=== PATIENT | female | born 1985 | race Caucasian/White ===

== ENCOUNTER 2018-07-06 10:34 | Inpatient (IN) | payer OTHER ==
[2018-07-06] MEDS ORDERED: Ondansetron INJ* 2 MG/ML VIAL IV ONE ×2 (11:23→12:46)
[2018-07-06] MEDS ORDERED: Morphine INJ* 2 MG/ML 1 ML SYRINGE (TWO MG - NEW SYRINGE VERSION) IV ONE ×2 (11:23→12:46)
--- NOTE | 2018-07-06 11:28 | ED ---
Abdominal Pain/Female - HPI Summary HPI Summary: This patient is a 33 year old F presenting to [facility] with a chief complaint of since constant RUQ pain since 07/04/18. She endorses pain radiation through right flank and into lower back, N/V, diaphoresis, and fever that has resolved. Pt denies urinary sx. She notes that she has been experience similar sx intermittently since 10/17/17. PMHx hypernephrosis. - History of Current Complaint Chief Complaint: EDFlankPain Stated Complaint: RT FLANK PAIN Time Seen by Provider: 07/06/18 10:59 Hx Obtained From: Patient Hx Last Menstrual Period: IUD Onset/Duration: Sudden Onset, Lasting Weeks, Still Present, Worse Since - , started 10/17/17 intermittent sx. Timing: Days Severity Initially: Moderate Severity Currently: Moderate Pain Intensity: 6 Pain Scale Used: 0-10 Numeric Location: Discrete At: RUQ Radiates: Yes Radiates to: Back, Flank Character: Sharp Aggravating Factor(s): Nothing Alleviating Factor(s): Nothing Associated Signs and Symptoms: Positive: Diaphoresis, Fever - resolved, Nausea, Vomiting. Negative: Urinary Symptoms Allergies/Adverse Reactions: Allergies Allergy/AdvReac Type Severity Reaction Status Date / Time prochlorperazine Allergy Anxiety Verified 07/04/18 15:15 [From Compazine] sumatriptan [From Imitrex] Allergy Vomiting Verified 07/04/18 15:15 Green Peppers Allergy Headache Uncoded 07/04/18 15:15 Home Medications: Home Medications Multivitamins/Minerals TAB* [Theragran/minerals TAB*] 1 tab PO DAILY 07/06/18 [ History Confirmed 07/06/18] PMH/Surg Hx/FS Hx/Imm Hx Endocrine/Hematology History: Denies: Hx Anticoagulant Therapy, Hx Diabetes, Hx Thyroid Disease Cardiovascular History: Denies: Hx Hypertension, Hx Pacemaker/ICD Respiratory History: Denies: Hx Asthma, Hx Chronic Obstructive Pulmonary Disease (COPD) GI History: Reports: Other GI Disorders Denies: Hx Ulcer History: Reports: Hx Kidney Stones, Other Problems/Disorders - hypernephrosis Sensory History: Denies: Hx Legally Blind, Hx Deafness, Hx Hearing Aid Opthamlomology History: Denies: Hx Legally Blind EENT History: Denies: Hx Deafness Neurological History: Reports: Hx Migraine Psychiatric History: Reports: Hx Depression Denies: Hx Panic Disorder - Surgical History Surgery Procedure, Year, and Place: 2006; twisted bowel 2005 - lap/ appy Infectious Disease History: No Infectious Disease History: Denies: Hx Clostridium Difficile, Hx Hepatitis, Hx Human Immunodeficiency Virus (HIV), Hx Shingles, Hx Tuberculosis, Hx Known/Suspected VRE, Hx Known/ Suspected VRSA, History Other Infectious Disease, Traveled Outside the [place] in Last 30 Days - Family History Known Family History: Negative: Hypertension, Renal Disease, Respiratory Disease, Seizure Disorder - Social History Occupation: Employed Full-time Lives: With Family Alcohol Use: None Hx Substance Use: No Substance Use Type: Reports: None Hx Tobacco Use: Yes Smoking Status (MU): Light Every Day Tobacco Smoker Type: Cigarettes Amount Used/How Often: 1/2 ppd Have You Smoked in the Last Year: Yes Review of Systems Positive: Fever - resolved, Skin Diaphoresis Positive: Abdominal Pain, Vomiting, Nausea Positive: flank pain. Negative: dysuria, frequency, urgency Positive: Myalgia - lower back secondary to abd/flank pain All Other Systems Reviewed And Are Negative: Yes Physical Exam - Summary Physical Exam Summary: General: mildly ill-appearing, moderate to severe pain distress Skin: warm, color reflects adequate perfusion, dry Head: normal Eyes: EOMI, ANDRES ENT: normal Neck: supple, non-tender Respiratory: CTA, breath sounds present Cardiovascular: RRR Abdomen: soft, tender in RUQ, non-tender in rest of abd Bowel: present Musculoskeletal: normal, strength/ROM intact Neurological: sensory/motor intact, A&O x3 Psychological: affect/mood appropriate Triage Information Reviewed: Yes Vital Signs On Initial Exam: Initial Vitals Temp Pulse Resp BP Pulse Ox 97.4 F 101 16 121/79 99 07/06/18 10:39 07/06/18 10:39 07/06/18 10:39 07/06/18 10:39 07/06/18 10:39 Vital Signs Reviewed: Yes Diagnostics - Vital Signs Vital Signs Temp Pulse Resp BP Pulse Ox 07/06/18 10:39 97.4 F 101 16 121/79 99 - Laboratory Result Diagrams: 07/06/18 11:53 07/06/18 11:53 Lab Statement: Any lab studies that have been ordered have been reviewed, and results considered in the medical decision making process. - Radiology CXR Xray Interpretation: No Acute Changes Radiology Interpretation Completed By: Radiologist - No active cardiopulmonary disease. Dr. Luis has reviewed this report. - Ultrasound No standard instances Ultrasound Interpretation: No Acute Changes Ultrasound Interpretation Completed By: Radiologist - No evidence of cholelithiasis or biliary duct dilatation is noted. The right kidney measures 10.1 x 4.5 x 4.9 cm with fullness of the right renal collecting system. Dr. Luis has reviewed this report. Re-Evaluation - Re-Evaluation First Eval Re-Evaluation Time: 13:34 Change: Unchanged Comment: Pain hasn't really improved s/p pain medication. Second Eval Re-Evaluation Time: 15:17 Change: Unchanged Comment: Per BSN Yesenia, pt is still very nauseous, in pain. Abdominal Pain Fem Course/Dx - Course Course Of Treatment: DISCUSSED WITH UROLOGY, DR ROONEY. ADMIT HOSPITALIST. - Diagnoses Provider Diagnoses: RUQ abdominal pain, Right flank pain - Provider Notifications Discussed Care Of Patient With: Jany Dixon Time Discussed With Above Provider: 14:17 Instructed by Provider To: Other - discussed admission, recommended urology consult first. Discharge - Sign-Out/Discharge Documenting (check all that apply): Patient Departure - admit - Discharge Plan Condition: Stable Disposition: ADMITTED TO [facility] - Billing Disposition and Condition Condition: STABLE Disposition: Admitted to [facility] - Attestation Statements Document Initiated by Samarae: Yes Documenting Scribe: Bakari Bernabe Provider For Whom Scribe is Documenting (Include Credential): Dr. Duke Luis MD Scribe Attestation: Bakari Wright, scribed for Dr. Duke Luis MD on 07/06/18 at 1813. Scribe Documentation Reviewed: Yes Provider Attestation: The documentation as recorded by the Bakari wood accurately reflects the service I personally performed and the decisions made by me, Dr. Duke Luis MD Consult Consult: 1149, Dr. Rooney: Admit for pain if needed, order a diuretic nuclear renal scan. 1519, Dr. Dixon: accepts admission
[2018-07-06 12:03] LABS: ABS Basophils 0 10^3/ul (0-0.2); ABS Eosinophils 0.1 10^3/ul (0-0.6); ABS Lymphocytes 1.6 10^3/ul (1.0-4.8); ABS Monocytes 0.4 10^3/ul (0-0.8); ABS Neutrophils 6.5 10^3/ul (1.5-7.7); ABS Nucleated RBC 0 10^3/ul; Eosinophil % 1.1 % (0-6); Hematocrit 43 % (35-47); Lymphocyte % 18.1 % (25-47); Mean Corpuscular HGB Conc 35 g/dl (31-36); Mean Corpuscular Hemoglobin 32 pg (27-31); Mean Corpuscular Volume 92 fL (80-97); Mean Platelet Volume 7.6 um3 (7.4-10.4); Nucleated Red Blood Cells % 0.2; Platelet Count 184 10^3/ul (150-450); Red Blood Count 4.68 10^6/ul (4.00-5.40); Red Cell Distribution Width 13 % (10.5-15); White Blood Count 8.6 10^3/ul (3.5-10.8)
[2018-07-06] MEDS: NS 0.9% 1000 ML* 1,000 ML IV SCH ×3 (12:05→18:28)
[2018-07-06 12:17] LABS: INR 1.06 (0.77-1.02)
[2018-07-06 12:20] LABS: EGFR Non-African American 91.8 (>60)
--- NOTE | 2018-07-06 12:25 | RAD ---
Indication: Right upper quadrant pain. Real-time sonography of the right upper quadrant was performed. The liver is normal in size. No focal lesions or intrahepatic duct dilatation is noted. The gallbladder demonstrates no gallstones, pericholecystic fluid or wall thickening. The common duct measures 2 mm. The right kidney measures 10.1 x 4.5 x 4.9 cm with fullness of the right renal collecting system. The pancreatic head, neck and proximal body demonstrates no mass or pancreatic ductal dilatation. Aorta and inferior vena cava are unremarkable. IMPRESSION: No evidence of cholelithiasis or biliary duct dilatation is noted.
--- NOTE | 2018-07-06 12:33 | RAD ---
HISTORY: ruq pain COMPARISONS: August 27, 2017 VIEWS: 1: frontal portable view of the chest at 12:18 PM FINDINGS: LINES AND TUBES: None. CARDIOMEDIASTINAL SILHOUETTE: The cardiomediastinal silhouette is normal for portable technique. PLEURA: The costophrenic angles are sharp. No pleural abnormalities are noted. LUNG PARENCHYMA: The lungs are clear. ABDOMEN: The upper abdomen is clear. There is no subphrenic gas. BONES AND SOFT TISSUES: No bone or soft tissue abnormalities are noted., Metallic foreign bodies are noted of the chest. IMPRESSION: NO ACTIVE CARDIOPULMONARY DISEASE.
[2018-07-06] MEDS ORDERED: NS 0.9% 1000 ML* 1,000 ML IV ONE (13:02)
[2018-07-06 13:54] LABS: Urine Appearance Clear; Urine Blood Negative (Negative); Urine Color Straw; Urine Ketones 1+ (Negative); Urine Protein Negative (Negative); Urine Specific Gravity 1.005 (1.010-1.030); Urine Urobilinogen Negative (Negative)
[2018-07-06] MEDS ORDERED: HYDROmorphone INJ* 1 MG/ML CARPUJECT SYRINGE IV ONE (14:32)
[2018-07-06] MEDS ORDERED: diPHENhydraMINE IV* 50 MG/ML 1 ml VIAL (BENADRYL) IV ONE (15:17)
[2018-07-06] MEDS ORDERED: Metoclopramide IV* 5 MG/ML 2 ML VIAL IV SLOW PU ONE (15:17)
[2018-07-06] MEDS ORDERED: HYDROmorphone INJ1* 1 MG/ML SYRINGE IV ONE (16:00)
[2018-07-06] MEDS ORDERED: HYDROmorphone INJ1* 1 MG/ML SYRINGE IV SLOW PU PRN (16:16)
[2018-07-06] MEDS ORDERED: Ondansetron INJ* 2 MG/ML VIAL IV PRN (16:19)
[2018-07-06] MEDS ORDERED: HYDROmorphone INJ1* 1 MG/ML SYRINGE IV SLOW PU ONE (17:40)
[2018-07-06] MEDS: Ondansetron INJ* 2 MG/ML VIAL IV PRN (18:28)
[2018-07-06] MEDS ORDERED: Acetaminophen TAB* 325 MG PO PRN (19:08)
[2018-07-06] MEDS: Metoclopramide IV* 5 MG/ML 2 ML VIAL IV PRN (21:02)
[2018-07-06] MEDS: HYDROmorphone INJ1* 1 MG/ML SYRINGE IV SLOW PU PRN (21:06)
--- NOTE | 2018-07-06 21:13 | HP ---
HOSPITAL MEDICINE HISTORY AND PHYSICAL: DATE OF ADMISSION: 07/06/18 PRIMARY CARE PHYSICIAN: None. ATTENDING PHYSICIAN: Dr. Mikayla Bonds * (dictation provided by Sarahi Nichols NP ). CHIEF COMPLAINT: Right upper quadrant pain. HISTORY OF PRESENT ILLNESS: Ms. 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 In the setting of this, the patient developed right upper quadrant pain on of last year. She describes the sudden onset onset of severe right upper quadrant pain. The patient states that she was doubled over with severe 10/10 pain. She was evaluated at [facility] where she reports that they did imaging of her gallbladder and that it was normal. She had no findings there to explain her symptoms. They suspected, however, that it was the gallbladder and offered for her to be admitted to the hospital for HIDA scan. She was feeling better and was discharged at that point based on her preferences. The patient states that since , she has been having intermittent right upper quadrant pain. She describes having pain in much less intensity, but happening about every other day. She does feel that the foods that she eats does play into the pain, but she is not quite clear which foods cause it. She, on Wednesday, had new onset of the very severe 10/10 right upper quadrant pain consistent with what she had had around of last year. She was evaluated again at [facility]. The results from that emergency visit showed that a CT abdomen and pelvis showed no evidence of any kidney involvement and the normal gallbladder. She went for an ultrasound of the gallbladder, which was normal, but did show that the kidney was suspected to have a mild right hydronephrosis. She was discharged as there was no evidence of obstruction or urinary tract infection or other laboratory abnormality. She states that on Wednesday she was feeling a little bit better, but this morning when she awoke, she again had severe wrenching 10/10 pain in the right upper quadrant. She states that she had a fever on Wednesday of 102, but has had no fever since. This is all in the setting of about 3-week episode of congestion and stuffy, runny nose. She has nausea, which she associates with the severe pain as well as vomiting. She states "I have a light stomach." She has her daily bout of diarrhea, but no change to her normal routine. In the emergency room, Ms. Parham had labs, which were unremarkable. Her urinalysis showed no evidence of infection. She had normal white count. Her electrolytes are normal. Her beta hCG is negative. Her vital signs are stable. She has no fever. She is not tachycardic. Gallbladder ultrasound showed no evidence of gallbladder inflammation, but did show question of a full right renal collecting system. PAST MEDICAL HISTORY: 1. History of "micro Crohn's." 2. 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 PAST SURGICAL HISTORY: 1. History of x2. 2. History of lap appendectomy during . 3. History of repair of a twisted bowel during as well. MEDICATIONS: Multivitamin p.o. daily. ALLERGIES: To PROCHLORPERAZINE and SUMATRIPTAN. FAMILY HISTORY: The patient's family history was reviewed. Her mother is alive and well. SOCIAL HISTORY: The patient is a smoker. She smokes about half pack a day. No reported alcohol or drug use. She states her mom would be the healthcare proxy. REVIEW OF SYSTEMS: A 14-point review of systems was completed with Ms. Parham and all those not mentioned above were negative. PHYSICAL EXAMINATION GENERAL: Ms. Parham is lying in the bed. She appears in pain and is holding underneath her right rib. She states that the pushing pressure there actually makes the pain feel better. She is in no acute distress. VITAL SIGNS: Blood pressure 97/75, heart rate 90, temperature 97.4, respiratory rate 18, O2 saturation 99% on room air. LUNGS: Clear to auscultation bilaterally with no accessory muscle use and good aeration. HEART: S1, S2. No murmur, rub, or gallop and regular. ABDOMEN: The abdomen is soft. It is nontender. There is no tenderness in the right upper quadrant. Bowel sounds are positive. EXTREMITIES: No cyanosis or edema. NEUROLOGIC: Alert and oriented x3. She moves all extremities equally. There is no facial asymmetry or focal weakness. Extraocular movements are intact. SKIN: Intact. DIAGNOSTIC STUDIES/LAB DATA: Sodium 138, potassium 3.9, chloride 109, serum bicarbonate 22, BUN 6, creatinine 0.73, glucose 89, lactic acid 0.7. CRP 5.47. Beta hCG less than 0.60. Lipase 12. WBC 8.6, hemoglobin 15.0, hematocrit 43, platelet count 184. INR 1.06. Urine shows no evidence of infection. Gallbladder ultrasound is read as follows: "No evidence of cholelithiasis or biliary duct dilatation is noted. The right kidney measures 10.1 x 4.5 x 4.9 cm with fullness of the right renal collecting system. The chest x-ray is as follows: "No active cardiopulmonary disease." ASSESSMENT AND PLAN: Ms. Parham is a 33-year-old female with a past medical history of right upper quadrant pain starting in September of 2017, who has had ongoing chronic pain there, now presenting with acute worsening starting as of Wednesday. Our plans are for observation in the hospital for the followin. Right upper quadrant pain. Her symptoms are certainly suggestive of gallbladder disease. She has had ultrasound that shows no evidence of gallbladder wall thickening or other abnormality. Her LFTs are normal. Plans will be to image with a HIDA scan to try to better evaluate the gallbladder. There has also been concern that perhaps these symptoms are related to the fullness seen in her right kidney. I reviewed this with Dr. Sanford over the phone. The description of the symptoms is unlikely to be related to the kidney based on the chronicity and the location. Plan to obtain the records from [facility] from earlier this week where she had a CT and ultrasound and to have those images reviewed by Dr. Sanford directly to determine if any further imaging of the kidney is warranted. In the meantime, the patient will have pain medications p.r.n. She will have IV fluids overnight. She will have antiemetics. 2. DVT prophylaxis with early mobility in this young female with low risk. 3. Code status is full code. TIME SPENT: Approximately 60 minutes were spent on the admission of this patient, more than half the time spent with her at the bedside reviewing the events leading up to this hospitalization, performing the physical examination, and reviewing my plan of care. SARAHI NICHOLS, SUGAR TRUCKER [id number]/[facility] #: [id number] NIKKI
[2018-07-07] MEDS: Ondansetron INJ* 2 MG/ML VIAL IV PRN (00:39)
[2018-07-07] MEDS: HYDROmorphone INJ1* 1 MG/ML SYRINGE IV SLOW PU PRN ×5 (01:04→22:24)
[2018-07-07] MEDS: NS 0.9% 1000 ML* 1,000 ML IV SCH ×2 (01:30→21:29)
[2018-07-07] MEDS ORDERED: HYDROmorphone INJ1* 1 MG/ML SYRINGE IV ONE (02:42)
[2018-07-07] MEDS: Metoclopramide IV* 5 MG/ML 2 ML VIAL IV PRN ×3 (05:15→19:30)
--- NOTE | 2018-07-07 08:20 | PN ---
Subjective Date of Service: 07/07/18 Interval History: Mr. Parham reports that she is continuing to have terrible right upper quadrant pain. She is nauseous as well due to pain and pain medications. She denies other complaint today including chest pain, SOB. Objective Active Medications: Acetaminophen (Tylenol Tab*) 650 mg PO Q6H PRN Hydromorphone HCl (Dilaudid Inj1s*) 2 mg IV SLOW PU Q4H PRN Sodium Chloride (Ns 0.9% 1000 Ml*) 1,000 mls @ 75 mls/hr IV PER RATE BRODY Metoclopramide HCl (Reglan Iv*) 10 mg IV Q6H PRN Ondansetron HCl (Zofran Inj*) 4 mg IV Q6H PRN Vital Signs: Temp Pulse Resp BP Pulse Ox 98.5 F 91 17 101/65 97 07/07/18 07:29 07/07/18 07:29 07/07/18 07:29 07/07/18 07:29 07/07/18 07:29 Oxygen Devices in Use Now: None Appearance: Female lying in bed in NAD Eyes: No Scleral Icterus Ears/Nose/Mouth/Throat: Mucous Membranes Moist Neck: Trachea Midline Respiratory: Symmetrical Chest Expansion and Respiratory Effort, Clear to Auscultation Cardiovascular: NL Sounds; No Murmurs; No JVD, No Edema Abdominal: NL Sounds; No Tenderness; No Distention, - - No pain with palpation in right upper quadrant Lymphatic: No Cervical Adenopathy Extremities: No Edema Skin: No Rash or Ulcers Neurological: Alert and Oriented x 3, NL Muscle Strength and Tone Nutrition: Taking PO's Result Diagrams: 07/06/18 11:53 07/06/18 11:53 Assess/Plan/Problems-Billing Assessment: Ms. Parham is a 33 yo F with a PMH of ongoing chronic right upper quadrant pain who was admitted on 07/06/18 with worsening right upper quadrant pain of unclear etiology. - Patient Problems (1) Right upper quadrant abdominal pain Comment: - GB US negative, HIDA scan negative. - Appreciate GI input, upper endoscopy negative. GI does not feel her symptoms or findings are consistent with gallbladder involvement or gallbladder colic. - US showed a full R renal collecting system (present on previous US from a few years ago), reviewed with Dr. Sanford. Plan to obtain images from CT and US ar [facility] and review with Dr Sanford today if further imaging is required. Images not recieved today, plan for diuretic nuc med renal scan tomorrow per Dr. Sanford's recommendation. - Continue pain meds with anti-emetics prn. (2) DVT prophylaxis Comment: - Early mobility. (3) Full code status Comment: Status and Disposition: INpatient with need for additional testing. Anticipate discharge to home when medically stable.
--- NOTE | 2018-07-07 10:15 | RAD ---
Indication: Right upper quadrant pain. Hepatobiliary scan was performed after intravenous injection of 6.5 mCi of technetium 99m mebrofenin. There is prompt uptake of the radiotracer by the hepatocytes with excretion into the biliary tree at 15 minutes. Reflux is noted in the gallbladder at 20 minutes. Bowel activity is noted at 55 minutes. IMPRESSION: Normal hepatobiliary scan with no evidence of cystic duct obstruction.
[2018-07-07] MEDS ORDERED: Scopolamine PATCH Remove* 1 NOTE MISC PATCH OFF SCH (14:00)
[2018-07-07] MEDS ORDERED: diPHENhydraMINE IV* 50 MG/ML 1 ml VIAL (BENADRYL) ONE (14:27)
[2018-07-07] MEDS ORDERED: fentaNYL* 50 MCG/ML 2 ML VIAL (100 MCG VIAL) ONE (14:27)
[2018-07-07] MEDS ORDERED: Midazolam* 1 MG/ML 10 ML VIAL (10 MG) ONE (14:27)
[2018-07-07] MEDS ORDERED: Scopolamine 1.5 mg* PATCH TRANSDERM SCH (15:00)
[2018-07-07] MEDS ORDERED: Ondansetron INJ* 2 MG/ML VIAL ONE (15:41)
[2018-07-07] MEDS ORDERED: Nicotine GUM* 2 MG PO PRN (16:48)
[2018-07-07] MEDS ORDERED: NS 0.9% 1000 ML* 1,000 ML IV SCH (17:00)
[2018-07-07] MEDS ORDERED: LORazepam TAB(*) 0.5 MG PO ONE (22:00)
--- NOTE | 2018-07-07 22:08 | CONS ---
CC: Primary care physician; Attending provider. * CONSULTATION REPORT: DATE OF CONSULT: 07/07/18 ATTENDING PHYSICIAN: REASON FOR CONSULT: Right upper quadrant abdominal pain, nausea, and history of esophageal ulcer. HISTORY OF PRESENT ILLNESS: This is a pleasant 33-year-old female who presented to the emergency room on 07/06/18 with a chief complaint of right upper quadrant pain for the last 2 to 3 days. The pain was constant in nature, waxes and wanes but never fully goes away. It does radiate to the right flank to her lower back, but also wraps around to the front into the epigastric region. She denies any dysphagia or odynophagia. Her adds to the history and states that she does have some pain after meals, but denies marianne reflux symptoms. She had a subjective fever, but no chills or rigors. Did admit to some nausea with some scant clear emesis. She states that she has had a prior episode that was similar to this back in September that was abrupt in onset, but did not last more than a few hours and was self resolving. She has tried omeprazole during these episodes, but has not continued between the episodes over the last 2 years. She does not take any NSAIDs. Denies any Motrin or ibuprofen or Aleve use. No family history of gastric ulcer or stomach problems due to the family in her mother of ulcerative colitis. She denies any melena or hematochezia, also denies any skin rashes or lesions. She states she has been tested for celiac in the past and that is negative. Today, she states that her pain is 8 to 9 out of 10, sharp, epigastric in right upper quadrant with radiation to the back and down the flank. Nothing makes the pain better or worse. Nothing alleviates it. She denies any urinary symptoms. No dysuria or hematuria and she has not seen any change in the color or frequency of her urine. Denies any weight loss or weight gain. The remainder of the 14- point review of systems is grossly negative. PAST MEDICAL HISTORY: Significant for hydronephrosis and migraine. PAST SURGICAL HISTORY: Significant for and appendectomy. MEDICATIONS: Outpatient include: 1. IUD. 2. Multivitamin. FAMILY HISTORY: Significant for ulcerative colitis. SOCIAL HISTORY: She does smoke tobacco daily, rare alcohol use. Denies any marijuana use. REVIEW OF SYSTEMS: F06-isweg review of systems was otherwise negative except for as described in the HPI. PHYSICAL EXAM: Vital Signs: Blood pressure is 101/65, pulse is 91, temperature is 98.5, respiratory rate is 16. General: She is alert and oriented x3. She appears to be in pain. HEENT: Atraumatic and normocephalic. Pupils are equal, round, and reactive to light. Conjunctivae are pink. Neck is supple. No palpable thyromegaly and trachea midline. Cardiovascular: Regular, rate, and rhythm. S1 and S2. Respiratory: Clear to auscultation bilaterally. Abdomen: Soft, mild tenderness to palpation of the epigastric region and right upper quadrant. There is noticeable guarding. No rebound tenderness is appreciated. Bowel sounds are positive. Extremities: No clubbing, no cyanosis, and no edema. Musculoskeletal: Normal muscle tone and bulk. Psychological: Appropriate mood and affect. DIAGNOSTIC STUDIES/LAB DATA: The patient had a gallbladder ultrasound of the right upper quadrant, which showed a normal appearing gallbladder without cholelithiasis or biliary duct dilatation. The right kidney was noted with fullness of the right renal collecting system. She had a chest x-ray that was done that showed no active cardiopulmonary disease and she had a HIDA scan that was also negative for any hepatobiliary disease. In terms of laboratory data: White blood cell count of 8.6, hemoglobin of 15, platelet count is 184, INR is 1.06. Chemistries are AST is 16, ALT is 12, bilirubin is 0.4, alkaline phosphatase is 72. Albumin is 4.2, lipase is 12, beta HCG is less than 0.60, lactic acid was 0.7. Sodium is 138, potassium is 3.9, BUN is 6, and creatinine of 0.73. ASSESSMENT AND PLAN: This is a 33-year-old female with right upper quadrant epigastric and flank pain. Her gallbladder appears normal on ultrasound and HIDA scan. She does have a history of esophageal ulcers. I will plan an upper endoscopy today to evaluate her esophagus, stomach, and duodenum. If this is negative, then I would suggest considering a possible repeat CAT scan to evaluate for a renal stone given the fullness to her right collecting system. Further recommendations to follow. [id number]/[facility] #: [id number] [facility]
--- NOTE | 2018-07-08 03:14 | PRO ---
CC: Primary care physician.* DATE OF PROCEDURE: 07/07/18 - ROOM #420 PROCEDURE PERFORMED: Esophagogastroduodenoscopy with biopsy. INDICATION: Abdominal pain, right upper quadrant pain. MEDICATIONS GIVEN: Include; 1. 50 mg IV Benadryl. 2. 50 mcg IV Fentanyl. 3. 5 mg IV midazolam. DESCRIPTION OF PROCEDURE: After the EGD procedure, including the risks, benefits, and alternatives, not limited to perforation, surgery and/or were explained to the patient, written consent was then obtained. IV medication was given and a bite-block was placed between the teeth. The adult Olympus gastroscope was inserted through the patient's mouth through the upper esophageal sphincter into the esophagus. The esophagus was normal in appearance. The GE junction was also normal in appearance. The scope was passed through the lower esophageal sphincter without issue. The stomach had mild gastritis. This was biopsied for YOLIS testing to rule out H. pylori. On retroflexion, there was no hernia or Ino erosions. The scope was then passed through the widely patent pylorus, into the duodenal bulb and then to the C-loop and I pushed into the distal duodenum all with normal in appearance. The scope was then withdrawn from the patient. She tolerated the procedure well and returned to the recovery room in stable condition. IMPRESSION AND PLAN: 1. Complete esophagogastroduodenoscopy with biopsies of the gastric antrum to rule out Helicobacter pylori. 2. Mild gastritis, biopsied for YOLIS testing. This is not the cause of the patient's pain. 3. No etiology of her abdominal pain was identified on this exam. RECOMMENDATIONS: She continues to have flank pain and right upper quadrant pain that radiates down her back. Her CMP is essentially unremarkable without any elevation of alkaline phosphatase or transaminases. Her right upper quadrant ultrasound from a gallbladder standpoint is completely unremarkable and a HIDA scan was also negative. The pain does not fit with biliary colic. It is constant in nature. It does not wax and wane. It does not really have a prandial association. I do not think that this pain is consistent with the biliary colic. Given that she had some renal dilatation on the ultrasound, I would potentially evaluate for kidney stones or possibly pyelonephritis. I discussed this with Purvi Nichols, the patient's primary nurse practitioner. If ongoing pain could consider a surgical eval, but I really do not see a clear indication of biliary colic at this time. [id number]/[facility] #: [id number] [facility]
[2018-07-08] MEDS: HYDROmorphone INJ1* 1 MG/ML SYRINGE IV SLOW PU PRN ×2 (03:45→08:34)
[2018-07-08] MEDS: Metoclopramide IV* 5 MG/ML 2 ML VIAL IV PRN (06:28)
[2018-07-08] MEDS: Ondansetron INJ* 2 MG/ML VIAL IV PRN (08:34)
[2018-07-08 11:57] VITALS: BP 98/59
[2018-07-08] MEDS ORDERED: traMADol TAB* 50 MG PO PRN (12:08)
[2018-07-08] MEDS ORDERED: traMADol TAB* 50 MG ONE (12:14)
[2018-07-08] MEDS ORDERED: Ondansetron ODT TAB* 4 MG PO PRN (12:17)
[2018-07-08] MEDS ORDERED: Ondansetron ODT TAB* 4 MG ONE (12:33)
--- NOTE | 2018-07-08 14:02 | RAD ---
INDICATION: Right-sided flank abdominal pain evaluate for renal calculus. COMPARISON: Comparison is made with a prior CT of the abdomen and pelvis from October 07, 2011. TECHNIQUE: A CT scan of the abdomen and pelvis was performed without intravenous and without oral contrast. Contiguous axial sections were obtained from the lung bases through the symphysis pubis. Images were reconstructed in the coronal and sagittal planes. FINDINGS: LUNGS: The lung bases are clear. No pleural effusion is present. LIVER: The liver is normal in size. No significant focal abnormality is seen on this noncontrast study. GALLBLADDER: No calcified gallstones are seen. BILE DUCTS: No intra or extrahepatic ductal distention is seen. SPLEEN: The spleen is normal in size without significant focal abnormality. PANCREAS: The pancreas is normal in size. No ductal distention or calcifications are seen. ADRENAL GLANDS: The adrenal glands are normal in size. KIDNEYS: The kidneys are normal in size. No renal calculi or hydronephrosis is seen. AORTA: The aorta is normal in caliber without significant calcific plaque. LYMPH NODES: No significantly enlarged lymph nodes are seen. BOWEL: The stomach, small and large bowel appear nondistended. The patient is status post appendectomy. There are scattered diverticula within the colon. There is no evidence for diverticulitis or colitis. PELVIC ORGANS: No bladder wall thickening is seen. No bladder calculi are seen. The uterus is anteverted and normal in size. There is a T-shaped IUD present. PERITONEUM: There is a small amount free intraperitoneal fluid present in the dependent portion of the pelvis. No free intraperitoneal air is seen. BONES: No significant focal osseous abnormality is seen. IMPRESSION: 1. NO EVIDENCE FOR RENAL CALCULI OR HYDRONEPHROSIS. 2. STATUS POST APPENDECTOMY. 3. SMALL AMOUNT OF FREE INTRAPERITONEAL FLUID IN THE PELVIS.
--- NOTE | 2018-07-08 15:04 | PN ---
Subjective Date of Service: 07/08/18 Interval History: continues to c/o of RUQ abd pain, states that the pain has improved and not as severe as when she was admitted. C/o mild nausea. Denies chest pain or shortness of breath. Denies diarrhea. reports was able to tolerate soft foods without difficulty. Patient reports that she would like to go home. Family History: Unchanged from Admission Social History: Unchanged from Admission Past Medical History: Unchanged from Admission Objective Active Medications: Acetaminophen (Tylenol Tab*) 650 mg PO Q6H PRN PRN Reason: PAIN Sodium Chloride (Ns 0.9% 1000 Ml*) 1,000 mls @ 75 mls/hr IV PER RATE [facility] Last Admin: 07/07/18 21:29 Dose: 75 mls/hr Metoclopramide HCl (Reglan Iv*) 10 mg IV Q6H PRN PRN Reason: NAUSEA/VOMITING Last Admin: 07/08/18 06:28 Dose: 10 mg Nicotine Polacrilex (Nicotine Gum*) 2 mg PO Q2H PRN PRN Reason: CRAVING Ondansetron HCl (Zofran Odt Tab*) 4 mg PO Q6H PRN PRN Reason: NAUSEA/VOMITING Last Admin: 07/08/18 12:36 Dose: 4 mg Pharmacy Profile Note (Scopolamine Patch Remove*) 1 note PATCH OFF .AFTER 72 HOURS [facility] Scopolamine (Transderm-Scop 1.5 Mg Patch*) 1 patch TRANSDERM Q72H [facility] Last Admin: 07/07/18 14:42 Dose: 1 patch Tramadol HCl (Ultram*) 50 mg PO Q6H PRN PRN Reason: PAIN Last Admin: 07/08/18 12:29 Dose: 50 mg Vital Signs - 8 hr 07/08/18 07/08/18 07/08/18 07:38 08:00 08:33 Temperature 98.5 F Pulse Rate 59 Respiratory 10 18 Rate Blood Pressure 98/55 102/68 (mmHg) O2 Sat by Pulse 97 Oximetry 07/08/18 07/08/18 07/08/18 08:34 09:30 11:53 Temperature 98.6 F Pulse Rate 74 Respiratory 18 18 12 Rate Blood Pressure 98/59 (mmHg) O2 Sat by Pulse 100 Oximetry 07/08/18 07/08/18 12:29 14:10 Temperature Pulse Rate Respiratory 18 18 Rate Blood Pressure (mmHg) O2 Sat by Pulse Oximetry Oxygen Devices in Use Now: None Appearance: appears comfotable resting in bed Eyes: No Scleral Icterus Ears/Nose/Mouth/Throat: Clear Oropharnyx, Mucous Membranes Moist Neck: NL Appearance and Movements; NL JVP, Trachea Midline Respiratory: Symmetrical Chest Expansion and Respiratory Effort Cardiovascular: NL Sounds; No Murmurs; No JVD, No Edema Abdominal: - - BS active x 4, soft, tenderness with palpation noted to RUQ, No CVAT tenderness, no other abd tenderness noted Extremities: No Edema, No Clubbing, Cyanosis Skin: No Rash or Ulcers Neurological: Alert and Oriented x 3 Nutrition: Taking PO's Result Diagrams: 07/06/18 11:53 07/06/18 11:53 Microbiology and Other Data: Microbiology 07/06/18 11:53 Aerobic Blood Culture - Preliminary Blood Venous No Growth Day 2 Anaerobic Blood Culture - Preliminary No Growth Day 2 07/06/18 11:53 Aerobic Blood Culture - Preliminary Blood Venous No Growth Day 2 Anaerobic Blood Culture - Preliminary No Growth Day 2 07/07/18 15:38 CLOtest - Final Gastric Antrum Assess/Plan/Problems-Billing Assessment: Ms. Parham is a 33 yo F with a PMH of ongoing chronic right upper quadrant pain who was admitted on 07/06/18 with worsening right upper quadrant pain of unclear etiology. - Patient Problems (1) Right upper quadrant abdominal pain Current Visit: Yes Status: Acute Code(s): R10.11 - RIGHT UPPER QUADRANT PAIN SNOMED Code(s): 546387971 Comment: - GB US negative, HIDA scan negative. - Appreciate GI input, upper endoscopy negative. GI does not feel her symptoms or findings are consistent with gallbladder involvement or gallbladder colic. - US showed a full R renal collecting system (present on previous US from a few years ago), reviewed with Dr. Sanford. unable to have renal scan d/t recent hida scan yesterday. Dr. Sanford's recommended CT abd and pelvis to evaluate for renal stones or obstruction- CT was negative for renal stones or hydronephrosis. Able to tolerate soft foods today- will discharge home with small amt of tramadol for pain, and zofran for nausea Will follow up with [facility] (2) DVT prophylaxis Current Visit: Yes Status: Acute Code(s): MGX9636 - SNOMED Code(s): 203875117 Comment: - Early mobility. (3) Full code status Current Visit: Yes Status: Acute Code(s): Z78.9 - OTHER SPECIFIED HEALTH STATUS SNOMED Code(s): 989529192 Comment: Status and Disposition: discharge home
--- NOTE | 2018-07-10 00:58 | DS ---
DISCHARGE SUMMARY: DATE OF ADMISSION: 07/06/18 DATE OF DISCHARGE: 07/08/18 PROVIDER: Veronique Venegas NP. ATTENDING PHYSICIAN: Dr. David Rodriguez * (dictated by Veronique Venegas NP). PRIMARY CARE PROVIDER: Dr. Shannan Bailey. PRIMARY DIAGNOSIS: Abdominal pain. SECONDARY DIAGNOSES: 1. Micro Crohn's. 2. History of third degree kidney reflux as a baby unclear, which resolved on its own. STUDIES COMPLETED WHILE IN THE HOSPITAL: She had a chest x-ray on 07/06/18, radiologist impression: No active cardiopulmonary disease. She had a gallbladder ultrasound. No evidence of cholelithiasis, biliary duct dilation noted. She had a HIDA scan on 07/07/18, radiologist's impression: Normal hepatobiliary scan. No evidence of cystic duct obstruction. She had an upper endoscopy, which showed mild gastritis. Biopsies were taken for YOLIS testing. The impression is this is not the cause of the patient's pain. No etiology of her abdominal pain was identified with this exam. She had a CT of the abdomen and pelvis on 07/08/18, radiologist's impression: 1. No evidence of renal calculi or hydronephrosis. 2. Status post appendectomy. 3. Small amount of free intraperitoneal fluid in the pelvis. DISCHARGE MEDICATIONS: 1. Tramadol 50 mg p.o. q.8 hours as needed for severe pain. I-STOP was completed. I-STOP number was [id number]. 2. Zofran 4 mg p.o. q.8 hours as needed for nausea. Continued home medications: 1. Multivitamin 1 p.o. daily. 2. Tylenol 650 mg q.6 hours as needed for pain. HISTORY OF PRESENT ILLNESS AND HOSPITAL COURSE: Ms. Parham is a 33-year-old female who carries a history of possible micro Crohn's, which she describes as diet controlled that causes her daily diarrhea but only about 1 bowel per day. The patient reports that she developed right upper quadrant pain on [place] of last year. She described sudden onset with severe right upper quadrant pain. She states that she was doubled over with severe pain 10/10. She states that she was evaluated at [facility] and reports they did imaging of her gallbladder and it was normal. She had no findings to explain her symptoms. They suspected, however, that it was gallbladder and offered her to be admitted to the hospital for HIDA scan. She was feeling better and was discharged at that point based on her preference. The patient states that since , she has been having intermittent right upper quadrant abdominal pain. She describes having pain in much less intensity but having about every other day. She does feel that food that she eats plays into her pain but is not quite clear what food causes it. She reports on Wednesday she had new onset of severe right upper quadrant abdominal pain 10/10, which was consistent with what she had around [place] Eve of last year. She was again evaluated at [facility]. The results from the emergency room visit showed that the CT of the abdomen and pelvis, no evidence of any kidney involvement and a normal gallbladder. She underwent an ultrasound of the gallbladder, which was normal but did show that the kidney was suspected to have mild right hydronephrosis. She was discharged and there was no evidence of obstruction or urinary tract infection or other laboratory abnormalities. She states that on Wednesday prior to admission, she felt a little better and the morning she woke again, she had severe pain, 10/10. She states that she had a fever on Wednesday of 102, but has had no fever since. She does report that she has 3-week episode of congestion, stuffy and runny nose. She reports nausea with associated severe pain as well as vomiting in the right upper quadrant. She does report that she has daily bout of diarrhea but is no change from her normal daily bowel routine. While in the emergency room, she had routine lab drawn, which was essentially within normal limits. Her urine was clean with only +1 ketones and specific gravity was 1.005, pH of 6. She had several exams performed throughout her hospitalization. She had an upper endoscopy that only showed mild gastritis and was not the cause of her abdominal pain. She continued to have right upper quadrant abdominal pain throughout the hospitalization with increased pain in the right upper quadrant with palpation. Her gallbladder ultrasound did show some fullness in the right kidney. She did have a repeat CT of the abdomen and pelvis, which did not show any hydronephrosis or any renal calculi or obstruction. The patient was started on clear liquid diet and she did advance to a soft diet and was able to follow regular diet without any nausea or vomiting. On the day of discharge, the patient does report that she is feeling slightly better that her pain has improved and is controlled with oral pain medication of tramadol. The patient reports that she would like to return home. At this time, Ms. Parham is stable for discharge home. Vital signs are as follows: Temperature is 98.6, heart rate 74, respirations were 12, O2 saturation was 100% on room air, blood pressure 98/59. DISCHARGE PLAN: Ms. Parham will be discharged home. Activity as tolerated. 1. Abdominal pain. Unclear of the etiology. She had a negative workup during this hospitalization. Her gallbladder ultrasound was negative. She had a negative CT of the abdomen and pelvis. There was no hydronephrosis. No renal calculi or obstructing kidney stones. She had an upper endoscopy that only showed mild gastritis and was deemed not the cause of her right upper quadrant abdominal pain. She did have a HIDA scan as well that was also within normal limits. At this time, she will be discharged home. She can continue on a soft diet. I advised the patient to refrain from drinking soda as she does report she drinks large amounts of soda on a daily basis. She can have Zofran 4 mg p.o. q.8 hours as needed for nausea. I will give her tramadol 50 mg. She can take 1 tablet every 8 hours as needed for severe pain. The patient was instructed to return to the emergency room if she had any increased abdominal pain, uncontrolled nausea and vomiting of blood or black or tarry stools or any other concerning symptoms. The patient was instructed to follow up with her primary care provider, Dr. Shannan Bailey, as scheduled next Wednesday for further outpatient workup. FOLLOWUP: She should follow up with Dr. Shannan Bailey as scheduled on Wednesday of next week. This is a summarization of her hospitalization. If you need further complete details, please obtain the entire medical record. TIME SPENT: Time spent on this discharge was 60 minutes, greater than half the time was spent with the patient and her discussing discharge plans and implementing my discharge plans. CONDITION ON DISCHARGE: Stable. VERONIQUE VENEGAS, YO [id number]/[facility] #: [id number] NIKKI
== END 2018-07-08 16:25 | disposition home or self-care (01) | DRG 392 ==
LOC: ED 10:34 → MED 15:57 → OBSVTOIN 07-07 18:07
PROVIDERS: ADMIT Internal Medicine; ATTEND Internal Medicine
PROC: 0DB78ZX Excision of Stomach, Pylorus, Via Natural or Artificial Opening Endoscopic, Diagnostic (ICD-10-PCS; principal; 2018-07-07)
DX: R10.11 Right upper quadrant pain (principal); K50.90 Crohn's disease, unspecified, without complications; F32.9 Major depressive disorder, single episode, unspecified; G89.29 Other chronic pain; K29.70 Gastritis, unspecified, without bleeding; R09.89 Other specified symptoms and signs involving the circulatory and respiratory systems; R11.2 Nausea with vomiting, unspecified; F17.210 Nicotine dependence, cigarettes, uncomplicated; G43.909 Migraine, unspecified, not intractable, without status migrainosus; Z88.8 Allergy status to other drugs, medicaments and biological substances; Z91.018 Allergy to other foods; Z87.442 Personal history of urinary calculi; Z90.89 Acquired absence of other organs; Z83.79 Family history of other diseases of the digestive system
CPT/HCPCS: 36415; 71045; 74176; 76705; 78226; 80053; 81003; 83605; 83690; 84702; 85025; 85379; 85610; 85730; 86140; 87040; 87077; 90686; 99156; 99157; 99283; 99406; A9270-GY; A9537; J1170; J1200; J2250; J2270; J2405; J2765; J3010